=== PATIENT | female | born 1965 | race African-American/Black ===

== ENCOUNTER 2018-03-24 13:55 | Emergency (ER) | payer SELFPAY ==
[~2018-03-24] VITALS: Ht 172.7 cm; Wt 63.6 kg
[2018-03-24] MEDS ORDERED: HYDROCODONE/ACETAMINOPHEN 5/325MG TABLET PO ONE (15:00)
[2018-03-24 15:13] VITALS: BP 121/94
== END 2018-03-24 17:00 | disposition home or self-care (01) ==
LOC: ER 16:31
DX: S93.402A Sprain of unspecified ligament of left ankle, initial encounter (principal); S93.602A Unspecified sprain of left foot, initial encounter; F17.200 Nicotine dependence, unspecified, uncomplicated; X50.1XXA Overexertion from prolonged static or awkward postures, initial encounter; Y93.K1 Activity, walking an animal; Y92.89 Other specified places as the place of occurrence of the external cause; Y99.8 Other external cause status
CPT/HCPCS: 73610; 73630; 99284